=== PATIENT | female | born 1955 | race Caucasian/White ===

== ENCOUNTER 2016-10-18 17:50 | Emergency (ER) | payer OTHER ==
[2016-10-18 17:55] VITALS: BP 107/67; PULSE 66; RESP 16; TEMP 97.3; O2SAT 96
[2016-10-18] MEDS ORDERED: PROPARACAINE 0.5% 15 ML OPHT DROP ONE (17:59)
[2016-10-18] MEDS ORDERED: PROPARACAINE 0.5% 15 ML OPHT DROP LEFTEYE ONE (18:03)
[2016-10-18] MEDS ORDERED: FLUORESCEIN SODIUM 1 MG STRIP OP ONE (18:07)
--- NOTE | 2016-10-18 18:39 | EDPHY ---
H & P Stated Complaint: eye pain Time Seen by Provider: 10/18/16 18:24 HPI/ROS: CHIEF COMPLAINT: Foreign body sensation left eye HISTORY OF PRESENT ILLNESS: The patient presents to the ED with a foreign body sensation in her left eye. She was playing golf earlier today when the symptoms began. The patient does have a history of having a recurrent issue foreign body sensation in her left eye. She saw her board attendant approximately 3 weeks ago and had a small piece of sand in her eye. The patient does not were contact lenses. She denies additional traumatic injury. She has no additional traumatic complaints. REVIEW OF SYSTEMS: A comprehensive 10 point review of systems is otherwise negative aside from elements mentioned in the history of present illness. Source: Patient - Personal History Current Tetanus/Diphtheria Vaccine: No Current Tetanus Diphtheria and Acellular Pertussis (TDAP): No - Medical/Surgical History Hx Asthma: No Hx Chronic Respiratory Disease: No Hx Diabetes: No Hx Cardiac Disease: No Hx Renal Disease: No Hx Cirrhosis: No Hx Alcoholism: No Hx HIV/AIDS: No Hx Splenectomy or Spleen Trauma: No Other PMH: graves - Social History Smoking Status: Never smoked - Physical Exam Exam: Visual Acuity: noted from Nurse's notes. Pupils: equal round and reactive to light EOMI Skin: no proptosis, no periorbital erythema or swelling, no vesicles Conjunctivae: not injected, no discharge, no foreign body Cornea: exam with fluorescein shows no evidence of a corneal abrasion Anterior chamber: normal, no hyphema or hypopyon Constitutional: Initial Vital Signs Temperature (C) 36.3 C 10/18/16 17:53 Heart Rate 66 10/18/16 17:53 Respiratory Rate 16 10/18/16 17:53 Blood Pressure 107/67 10/18/16 17:53 O2 Sat (%) 96 10/18/16 17:53 O2 Delivery Mode Room Air Medical Decision Making ED Course/Re-evaluation: The patient presents to the ED with a foreign body sensation in her left eye. The patient received topical Ophthetic. A examination of her eye, upper and lower lids and cornea demonstrate no evidence of an obvious foreign body or corneal abrasion. The patient has had complete relief of pain with Ophthetic in the ED. At this point time I do feel it is reasonable to have the patient follow up with her regular board attendant tomorrow for any sensation of any ongoing foreign body. She is advised to return to the ED this evening for severe eye pain or other concerns. - Data Points Medications Given: Discontinued Medications Proparacaine HCl (Alcaine 0.5%) 2 drops LEFTEYE ONCE ONE Stop: 10/18/16 18:04 Last Admin: 10/18/16 18:04 Dose: 2 drops Departure - Departure Disposition: Home, Routine, Self-Care Clinical Impression: Acute left eye pain Condition: Good Instructions: Eye Pain (ED) Additional Instructions: 1. I was unable to see an obvious foreign body or corneal abrasion on my examination today. 2. Please follow up with the board attendant at the [facility] tomorrow for any ongoing symptoms of a foreign body or decreased vision. 3. Please return to the ED this evening for severe pain or other concerns. Referrals: Delfino Anthony MD [Medical Doctor] - As per Instructions
== END 2016-10-18 18:42 | disposition home or self-care (01) ==
DX: H57.12 Ocular pain, left eye (principal)

== ENCOUNTER → 2018-04-26 | Outpatient (CLI) | payer OTHER | LOC: FIMAGING 14:06 | PROVIDERS: ATTEND Internal Medicine | DX: Z13.820 Encounter for screening for osteoporosis (principal); M85.89 Other specified disorders of bone density and structure, multiple sites ==